=== PATIENT | male | born 1985 | race Caucasian/White ===

== ENCOUNTER 2022-03-08 09:51 | Emergency (ER) | payer BC, SELFPAY ==
[2022-03-08 10:01] VITALS: BP 160/97; PULSE 89; RESP 16; TEMP 37; O2SAT 98
--- NOTE | 2022-03-08 10:05 | ED.NAVMDI ---
HPI - Nausea/Vomiting/Diarrhea General Chief complaint: Nausea/Vomiting/Diarrhea Stated complaint: Diarhea Time Seen by Provider: 03/08/22 10:06 Source: patient and RN notes reviewed Mode of arrival: ambulatory Limitations: no limitations History of Present Illness HPI Narrative: 37-year-old male presented for complaints of diarrhea last night. States this has resolved around 0500 after taking Imodium last night. Denies associated abdominal pain, nausea, fever, hematochezia or melena. Denies sick contacts. He is requesting work note to return tomorrow. Related Data Home Medications Medication Instructions Recorded Confirmed No Home Medications 03/08/22 03/08/22 Allergies Allergy/AdvReac Type Severity Reaction Status Date / Time No Known Allergies Allergy Verified 03/08/22 10:05 Review of Systems Review of Systems: CONSTITUTIONAL: Denies body aches, fever, chills ENT: Denies rhinorrhea, congestion CARDIOVASCULAR: Denies chest pain, palpitations, or edema. RESPIRATORY: Denies cough or dyspnea. GASTROINTESTINAL: Endorses diarrhea. Denies abdominal pain, nausea, vomiting, hematochezia, melena, hematemesis GENITOURINARY: Denies dysuria, hematuria, or CVA tenderness. SKIN: Denies rash, itching, or wounds. MUSCULOSKELETAL: Denies back pain, joint pain, or myalgia. NEUROLOGIC: Denies headache, numbness, tingling, or weakness. All systems reviewed & are unremarkable except as noted in HPI and below PMFSH Comments At time of signature, I have reviewed and agree with nursing past medical, surgical, social and family history unless otherwise noted. Please see nursing chart for further information. There is no relevant family history pertinent to the presenting complaint Exam Narrative: GENERAL: Well-appearing EYES: EOMI. Conjunctivae normal. ENT: Mucous membranes pink and moist. CHEST: Clear to auscultation. HEART: Regular rate and rhythm. ABDOMEN: abd large, soft, nondistended, normal active bowel sounds, Nontender; No guarding EXTREMITIES: Normal range of motion. SKIN: Warm, dry, no rash. Capillary refill normal. Normal skin turgor. NEURO: No focal deficits. Alert and oriented x3. PSYCH: Normal affect. Course Course Emergency Course: Patient is aware of diagnosis, understands and agrees to treatment plan. Anticipatory guidance given. Patient agrees to follow-up as directed and is aware of reasons to seek care at the emergency department. Portions of this record may have been created with voice recognition software Level of Care: Express Care Visit Vital Signs Vital signs: Vital Signs Temperature 98.6 F 03/08/22 10:01 Pulse Rate 89 03/08/22 10:01 Respiratory Rate 16 03/08/22 10:01 Blood Pressure 160/97 H 03/08/22 10:01 Pulse Oximetry 98 03/08/22 10:01 Oxygen Delivery Room Air 03/08/22 10:01 Temperature 98.6 F 03/08/22 10:01 Pulse Rate 89 03/08/22 10:01 Respiratory Rate 16 03/08/22 10:01 Blood Pressure 160/97 H 03/08/22 10:01 Pulse Oximetry 98 03/08/22 10:01 Oxygen Delivery Room Air 03/08/22 10:01 MDM - Nausea/Vomiting/Diarrhea MDM Narrative Medical decision making narrative: Pt reports symptoms have resolved and is requesting note to allow return to work tomorrow. Advised supportive measures. He is appropriate for outpt treatment and follow up. Differential Diagnosis Differential diagnosis: Likely traveler's diarrhea, food poisoning and gastroenteritis Discharge Plan Discharge Clinical Impression: Acute diarrhea Patient Disposition: Home, Self-Care Condition: Stable Instructions: Acute Diarrhea (ED) Additional Instructions: Stay hydrated. Take small sips of fluid containing electrolytes frequently. Clear liquids (broth, jello, tea, sprite, pedialyte) and Angelina foods (bananas, rice, applesauce, toast, crackers); Avoid fatty greasy fried foods You should go to the hospital if you experience persistent nausea and vomiting that does
== END 2022-03-08 10:19 | disposition home or self-care (01) ==
PROVIDERS: Emergency Provider Nurse Practitioner Family
DX: R19.7 Diarrhea, unspecified (principal)
CPT/HCPCS: 99202; G0463

== ENCOUNTER 2022-09-09 08:45 | Emergency (ER) | payer OTHER, SELFPAY ==
--- NOTE | ~2022-09-09 | XR_ITS ---
[id number] DATE: 09/09/2022 09:22 INDICATION: Patient sneezed and heard a pop, with pain at left anterior ribs TECHNIQUE: PA chest. 4 views of the left ribs. COMPARISON: None FINDINGS: Normal heart size. No hilar or mediastinal enlargement. No pulmonary infiltrate or consolid ation, pleural effusion or pulmonary vascular congestion or pneumothorax. No left rib fracture is detected. IMPRESSION: Negative Reviewed, dictated and finalized at [facility] Reviewed, dictated and finalized at [facility] [employer]ING [employer] OPERATOR IMPRESSION: Negative
[2022-09-09 09:02] VITALS: BP 133/92; PULSE 97; RESP 20; TEMP 37.4; O2SAT 99
--- NOTE | 2022-09-09 09:09 | ED.GENADULT ---
HPI - General Adult General Chief complaint: Unspecified Stated complaint: rib pain from sneeze Time Seen by Provider: 09/09/22 09:09 History of Present Illness HPI narrative: PATIENT PRESENTS WITH LEFT RIB PAIN. PATIENT REPORTS A COUGHING SPELL AND FELT A POP IN HIS LEFT LOWER RIB. NO SHORTNESS OF BREATH AND NO CHEST PAIN. PATIENT REPORTS A HISTORY OF RIB FRACTURE. Related Data Home Medications Medication Instructions Recorded Confirmed lisinopril 20 mg tablet 20 mg PO DAILY 09/09/22 09/09/22 Allergies Allergy/AdvReac Type Severity Reaction Status Date / Time No Known Allergies Allergy Verified 09/09/22 08:54 Review of Systems Review of Systems: CONSTITUTIONAL: DENIES FEVER, CHILLS, OR SWEATS. EYES: DENIES VISUAL CHANGES, REDNESS, OR DISCHARGE. ENT: DENIES RHINORRHEA, CONGESTION, SORE THROAT, OR OTALGIA. CARDIOVASCULAR: DENIES CHEST PAIN, PALPITATIONS, OR EDEMA. RESPIRATORY: DENIES COUGH OR DYSPNEA. GASTROINTESTINAL: DENIES ABDOMINAL PAIN, NAUSEA, VOMITING, OR DIARRHEA. GENITOURINARY: DENIES DYSURIA OR HEMATURIA. SKIN: DENIES RASH OR ITCHING. MUSCULOSKELETAL: DENIES BACK PAIN, JOINT PAIN, OR MYALGIA. NEUROLOGIC: DENIES HEADACHE, NUMBNESS, OR WEAKNESS. PSYCHIATRIC: DENIES ANXIETY OR DEPRESSION. PMFSH Comments AT TIME OF SIGNATURE, AGREE WITH NURSING PAST MEDICAL, SURGICAL, SOCIAL AND FAMILY HISTORY. THERE IS NO RELEVANT FAMILY HISTORY PERTINENT TO THE PRESENTING COMPLAINT Exam Narrative: GENERAL: WELL-APPEARING, WELL-NOURISHED, AND IN NO ACUTE DISTRESS. HEAD: NORMOCEPHALIC, ATRAUMATIC. EYES: PERRLA AND EOMI. ENT: NARES CLEAR, NO RHINORRHEA OR EPISTAXIS. MUCOUS MEMBRANES MOIST. NECK: SUPPLE. CHEST: CLEAR TO AUSCULTATION. NO RESPIRATORY DISTRESS. ALL PAIN REPRODUCIBLE. RIB TENDER. NO CREPITUS OR SQ EMPHYSEMA OR DEFORMITY OR STEP OFFS. NO ECCHYMOSIS OR LESIONS. HEART: REGULAR RATE AND RHYTHM. NO MURMUR HEARD. NORMAL PERIPHERAL PULSES. ABDOMEN: SOFT, NONTENDER, NONDISTENDED, NORMAL ACTIVE BOWEL SOUNDS. EXTREMITIES: NORMAL RANGE OF MOTION. NO EDEMA. SKIN: WARM, DRY, NO RASH. NEURO: NO FOCAL DEFICITS. ALERT AND ORIENTED X3. RONNIE COMA SCALE EYE OPENING: SPONTANEOUS 4 RONNIE COMA SCALE MOTOR: OBEYS COMMANDS 6 RONNIE COMA SCALE VERBAL: ORIENTED 5 RONNIE COMA SCALE TOTAL 15 Course Course Level of Care: Express Care Visit Vital Signs Vital signs: Vital Signs Temperature 37.4 C 09/09/22 09:02 Pulse Rate 97 09/09/22 09:02 Respiratory Rate 20 09/09/22 09:02 Blood Pressure 133/92 H 09/09/22 09:02 Pulse Oximetry 99 09/09/22 09:02 Oxygen Delivery Room Air 09/09/22 09:02 Temperature 37.4 C 09/09/22 09:02 Pulse Rate 97 09/09/22 09:02 Respiratory Rate 20 09/09/22 09:02 Blood Pressure 133/92 H 09/09/22 09:02 Pulse Oximetry 99 09/09/22 09:02 Oxygen Delivery Room Air 09/09/22 09:02 PLEASE VIVIENNE SCHEDULE A FOLLOWUP VISIT WITH YOUR PERSONAL PHYSICIAN FOR FURTHER EVALUATION AND TREATMENT. INCLUDING RECHECK AND DISCUSSION OF YOUR BLOOD PRESSURE. IF YOUR SYMPTOMS PERSIST, CHANGE OR WORSEN SIGNIFICANTLY BEFORE YOU CAN CONTACT YOUR PERSONAL PHYSICIAN THEN PLEASE, WITHOUT DELAY, GO TO THE EMERGENCY DEPARTMENT FOR FURTHER EVALUATION X-RAY DISCUSSED WITH PATIENT, X-RAY FINDINGS AND THAT X-RAYS WERE NEGATIVE FOR FRACTURE OR DISLOCATIONS. X-RAYS CANNOT RULE OUT TENDON, LIGAMENT, OR SOFT TISSUE STRUCTURE INJURIES AND IF SYMPTOMS PERSIST OR WORSEN, FURTHER EVALUATION MAY BE WARRANTED FOR POTENTIAL IMAGING. ADVISED REST, ICE, COMPRESSION, AND ELEVATION. IF PRESCRIBED ANY MEDICATIONS, TAKE DIRECTED. IF PRESCRIBED MUSCLE RELAXERS, DO NOT DRINK ALCOHOL, DRIVE, OR OPERATE ANY HEAVY MACHINERY WHILE TAKING. INSTRUCTED ON WHEN TO F/U WITH PCP AND CRITICAL RED FLAGS S/S DISCUSSED TO WHEN TO RETURN TO THE [facility] OR GO TO THE EMERGENCY DEPARTMENT. PATIENT/FAMILY UNDERSTAND IMPORTANCE OF CLOSE OBSERVATION AND RETURNING OR GOING TO THE EMERGENCY ROOM IF ANY WORSENING CONDITION. . Medical
== END 2022-09-09 10:10 | disposition home or self-care (01) ==
PROVIDERS: Emergency Provider Nurse Practitioner Family; PCP Physician Assistant
DX: R07.81 Pleurodynia (principal); I10 Essential (primary) hypertension
CPT/HCPCS: 71101; 99213; G0463